=== PATIENT | female | born 1980 | race Caucasian/White ===

== ENCOUNTER 2018-03-29 20:57 | Emergency (ER) | payer MEDICAID ==
--- NOTE | 2018-03-29 21:19 | EDPHY ---
H & P Time Seen by Provider: 03/29/18 23:05 HPI/ROS: Chief complaint. Abdominal pain HPI. Patient is a 37-year-old female with right upper quadrant pain for 2 weeks. When she drinks alcohol it goes away. Her last drink tonight was at 7: 00 p.m.. She has had nausea vomiting and diarrhea. She has a gastric sleeve which was placed in June 2017 and has worked well for her so far. Her right upper quadrant pain is not worse with eating. It does not radiate to the back. It is described as crampy. She went to detox this evening and they sent her here because of the right upper quadrant pain. Denies chest pain, shortness of breath, fever. ROS 10 systems were reviewed and negative with the exception of the elements mentioned in the history of present illness Past Medical/Surgical History: Hysterectomy, hypertension, depression, anxiety, cardiomyopathy, alcoholism, meth use Social History: Single, nonsmoker, last alcohol use was Smoking Status: Never smoked Physical Exam: General Appearance: Alert well-developed female moderate distress vital signs show heart rate 114 Eyes: Pupils are equal round reactive with mild injection bilaterally. ENT, Mouth: Mucous membranes are moist. Respiratory: There are no retractions, lungs are clear to auscultation. Cardiovascular: Regular rate and rhythm. Gastrointestinal: Abdomen is soft with tenderness in the right upper quadrant. No masses. Normal bowel sounds. No tenderness in the epigastrium mid abdomen or left side abdomen Neurological: Awake and alert, sensory and motor exams grossly normal. Skin: Warm and dry, no rashes. Musculoskeletal: Neck is supple nontender. Extremities symmetrical, full range of motion. Psychiatric: Patient is oriented X 3, there is no agitation. Constitutional: Initial Vital Signs Temperature (C) 36.8 C 03/29/18 21:15 Heart Rate 114 H 03/29/18 21:15 Respiratory Rate 20 03/29/18 21:15 Blood Pressure 142/102 H 03/29/18 21:15 O2 Sat (%) 95 03/29/18 21:15 O2 Delivery Mode Room Air Allergies/Adverse Reactions: amoxicillin Allergy (Verified 03/29/18 21:18) Home Medications: Medication Instructions Recorded traZODone 03/29/18 Medical Decision Making - Diagnostics Imaging Results: Imaging Impressions Abdomen Ultrasound 03/29/18 21:32 Impression: Normal gallbladder. Please note that no cyst is identified adjacent to the gallbladder fossa or in the anterior lateral left hepatic lobe. Results discussed with Dr. Jourdan Thomson at 10:[address] 03/29/18 21:37 Impression: 1. No obvious source for right upper quadrant pain identified 2. Mild diffuse steatosis of the liver with 2 focal lower density areas described above. If further characterization of the liver lesions is important, then consider liver MRI without and with contrast, since cysts were not identified on the patient's right upper quadrant ultrasound. 3. Left breast asymmetry/possible mass. Recommend physical examination and diagnostic mammography. 4. Post gastric sleeve surgery without evidence of a surgical complication. 5. 2.3 cm left adnexal cyst. Results discussed with Dr. Jourdan Thomson at 10:45 PM. General information for patients regarding this examination can be found at [email or web address]. If you have questions or comments about this report, please contact me at (hospital) or [phone] (cell). Ultrasound gallbladder is normal. No stones. CT abdomen and pelvis with IV contrast shows fatty infiltration of the liver and to low density areas. Left breast asymmetry possible mass. Gastric sleeve appears to be in normal position. Studies reviewed by me and discussed with Dr. Lemon Procedures: IV normal saline Toradol for pain ED Course/Re-evaluation: Re-evaluation 11:00 p.m. Patient and I discussed laboratory and imaging evaluation. We discussed treatment plan including criteria for return importance of follow-up and further evaluation. She expresses understanding Patient reports no pain now. She agrees to [facility] Differential Diagnosis: I considered cholelithiasis, cholecystitis, gastric sleeve displacement. 2 liver lesions require follow-up an asymmetry of the breast requiring follow-up with mammogram. - Data Points Laboratory Results: Laboratory Results 03/29/18 21:20 03/29/18 21:20 03/29/18 03/29/18 03/29/18 21:20 21:20 21:20 WBC 7.54 10^3/uL 10^3/uL (3.80-9.50) RBC 4.87 10^6/uL 10^6/uL (4.18-5.33) Hgb 14.5 g/dL g/dL (12.6-16.3) Hct 41.3 % % (38.0-47.0) MCV 84.8 fL fL (81.5-99.8) MCH 29.8 pg pg (27.9-34.1) MCHC 35.1 g/dL g/dL (32.4-36.7) RDW 15.3 % H % (11.5-15.2) Plt Count 229 10^3/uL 10^3/uL (150-400) MPV 8.8 fL fL (8.7-11.7) Neut % (Auto) 41.1 % % (39.3-74.2) Lymph % (Auto) 44.8 % % (15.0-45.0) [place] % (Auto) 9.7 % % (4.5-13.0) Eos % (Auto) 2.7 % % (0.6-7.6) Baso % (Auto) 1.3 % % (0.3-1.7) Nucleat RBC Rel Count 0.0 % % (0.0-0.2) Absolute Neuts (auto) 3.10 10^3/uL 10^3/uL (1.70-6.50) Absolute Lymphs (auto) 3.38 10^3/uL H 10^3/uL (1.00-3.00) Absolute Monos (auto) 0.73 10^3/uL 10^3/uL (0.30-0.80) Absolute Eos (auto) 0.20 10^3/uL 10^3/uL (0.03-0.40) Absolute Basos (auto) 0.10 10^3/uL 10^3/uL (0.02-0.10) Absolute Nucleated RBC 0.00 10^3/uL 10^3/uL (0-0.01) Immature Gran % 0.4 % % (0.0-1.1) Immature Gran # 0.03 10^3/uL 10^3/uL (0.00-0.10) Sodium 140 mEq/L mEq/L (135-145) Potassium 3.4 mEq/L L mEq/L (3.5-5.2) Chloride 103 mEq/L mEq/L (97-110) Carbon Dioxide 23 mEq/l mEq/l (22-31) Anion Gap 14 mEq/L mEq/L (6-14) BUN 7 mg/dL mg/dL (7-23) Creatinine 0.7 mg/dL mg/dL (0.6-1.0) Estimated GFR > 60 Glucose 84 mg/dL mg/dL (70-100) Calcium 8.8 mg/dL mg/dL (8.5-10.4) Total Bilirubin 0.8 mg/dL mg/dL (0.1-1.4) Conjugated Bilirubin 0.5 mg/dL mg/dL (0.0-0.5) Unconjugated Bilirubin 0.3 mg/dL mg/dL (0.0-1.1) AST 160 IU/L H IU/L (14-46) ALT 81 IU/L H IU/L (9-52) Alkaline Phosphatase 75 IU/L IU/L (38-126) Total Protein 7.4 g/dL g/dL (6.3-8.2) Albumin 4.4 g/dL g/dL (3.5-5.0) Lipase 88 IU/L IU/L (23-300) Beta HCG, Qual NEGATIVE Ethyl Alcohol 325 mg/dL H mg/dL (0-10) Medications Given: Discontinued Medications Sodium Chloride (Ns) 1,000 mls @ 0 mls/hr IV EDNOW ONE; Wide Open PRN Reason: Protocol Stop: 03/29/18 21:27 Last Admin: 03/29/18 21:34 Dose: 1,000 mls Ketorolac Tromethamine (Toradol) 30 mg IVP EDNOW ONE Stop: 03/29/18 22:00 Last Admin: 03/29/18 22:05 Dose: 30 mg Ondansetron HCl (Zofran) 4 mg IVP EDNOW ONE Stop: 03/29/18 21:33 Last Admin: 03/29/18 21:52 Dose: 4 mg Departure - Departure Disposition: Home, Routine, Self-Care Clinical Impression: Abdominal pain Alcohol intoxication Qualifiers: Complication of substance-induced condition: uncomplicated Qualified Code(s): F10.920 - Alcohol use, unspecified with intoxication, uncomplicated Condition: Good Instructions: Alcohol Intoxication (ED), Acute Abdominal Pain (ED) Additional Instructions: Return for worsening symptoms. You have cyst in your liver which requires further evaluation. You have asymmetry of the left breast which requires follow-up mammogram and evaluation Follow-up with your regular physician at [facility] to arrange the above further evaluations Referrals: Patient,NotPresent [Unknown] - As per Instructions [facility] [place] [Outside] - 2-3 days without fail
[2018-03-29] MEDS ORDERED: NS 1,000 ML IV ONE (21:26)
[2018-03-29] MEDS ORDERED: ONDANSETRON 4 MG/2 ML VIAL IVP ONE (21:32)
[2018-03-29 21:34] LABS: PLATELET COUNT 229 10^3/uL (150-400)
[2018-03-29] MEDS ORDERED: IOPAMIDOL (ISOVUE 370) 100 ML BTL IV ONE (21:39)
[2018-03-29] MEDS ORDERED: KETOROLAC 30 MG/1 ML SDV IVP ONE (21:59)
[2018-03-29] MEDS ORDERED: CHLORDIAZEPOXIDE 25MG PREPK#6 BTL TAKEHOME ONE (23:10)
[2018-03-29 23:34] VITALS: BP 116/66
[2018-03-29] MEDS ORDERED: chlordiazePOXIDE 25 MG CAP PO ONE (23:35)
== END 2018-03-30 00:31 | disposition home or self-care (01) ==
DX: R10.9 Unspecified abdominal pain (principal); F10.920 Alcohol use, unspecified with intoxication, uncomplicated
CPT/HCPCS: 96374; G0480; J1885; J2405; Q9967